=== PATIENT | female | born 1960 | race Two or more races ===

== ENCOUNTER 2018-01-27 16:35 | Emergency (ER) | payer SELFPAY ==
[2018-01-27] MEDS ORDERED: Sodium Chloride 0.9% 1,000 ML IV ONE (16:55)
[2018-01-27] MEDS ORDERED: Ketorolac 30 MG/ML SDV IVPUSH ONE (16:56)
[2018-01-27] MEDS ORDERED: Sodium Chloride 0.9% 10 ML Syringe FLUSH PRN (16:56)
[2018-01-27] MEDS ORDERED: Ondansetron 4 MG/2 ML SDV IVPUSH ONE (16:56)
[2018-01-27] MEDS ORDERED: Sodium Chloride 0.9% 2.5 ML Syringe FLUSH PRN (16:56)
[2018-01-27] MEDS ORDERED: Proparacaine 0.5% Ophth Soln 15 ML Bottle EYELF ONE (17:01)
--- NOTE | 2018-01-27 17:06 | EDM.PDOC ---
ED HPI GENERAL MEDICAL PROBLEM - General Chief Complaint: Headache Stated Complaint: HEAD HURTS AND WENT TO HER EYE Time Seen by Provider: 01/27/18 17:05 Source of Information: Reports: Patient History Limitations: Reports: No Limitations - History of Present Illness INITIAL COMMENTS - FREE TEXT/NARRATIVE: HISTORY AND PHYSICAL: History of present illness: Patient is a 57-year-old female here with complaint of left-sided headache and eye pain that started at 1pm today. Patient states left eye is blurry and light bothers it. She reports the pain is constant. She is feeling nauseas but denies any fevers, chills, abdominal pain, vomiting, diarrhea. Patient has history of glaucoma, hypertension, and type 2 diabetes. She is using topical drops for her glaucoma, last ophthalmology visit was about 2 months ago. Patient rates pain 10 /10. Review of systems: As per history of present illness and below otherwise all systems reviewed and negative. Past medical history: As per history of present illness and as reviewed below otherwise noncontributory. Surgical history: As per history of present illness and as reviewed below otherwise noncontributory. Social history: No reported history of drug or alcohol abuse. Family history: As per history of present illness and as reviewed below otherwise noncontributory. Physical exam: General: Patient sitting comfortably in no acute distress and nontoxic appearing HEENT: Left eye is injected with tearing. Atraumatic, normocephalic, pupils reactive, negative for conjunctival pallor or scleral icterus, mucous membranes moist, throat clear, neck supple, nontender, trachea midline. No meningeal signs. Wood's lamp exam unremarkable. Lungs: Clear to auscultation, breath sounds equal bilaterally, chest nontender. Heart: S1S2, regular, negative for clicks, rubs, or overt murmur. Abdomen: Soft, nondistended, nontender. Negative for masses or hepatosplenomegaly. Negative for costovertebral tenderness. Pelvis: Stable nontender. Genitourinary: Deferred. Rectal: Deferred. Extremities: Atraumatic, negative for cords or calf pain. Neurovascular unremarkable. Neuro: Awake, alert, oriented. Cranial nerves II through XII unremarkable. Cerebellum unremarkable. Motor and sensory unremarkable throughout. Exam nonfocal. Notes: 1745 - patient rates pain 8/10. 1800 - patient rates pain 5/[address] Davis ophthalmology, he advised ointment/artificial tears and follow up at [place] tomorrow. Diagnostics: CBC, CMP Head CT IOP 31mmHg Therapeutics: 1L normal saline IV 30mg Toradol IV 4mg Zofran IV 1mg Ativan IV 25mg Benadryl IV Prescriptions: Artificial tears Impression: Left eye pain vs migraine Plan: 1. Use drops and take toradol as instructed 2. Follow up with supply chain technician tomorrow, please call clinic to schedule appointment. 3. Return to ED as needed as discussed Definitive disposition and diagnosis as appropriate pending reevaluation and review of above. left eye Pain Score (Numeric/FACES): 10 - Related Data Allergies Allergy/AdvReac Type Severity Reaction Status Date / Time No Known Allergies Allergy Verified 01/27/18 16:55 Home Meds: Home Meds Dextran 70/Hypromellose [Artificial Tears Eye Drops] 15 ml OP Q4HR #1 drops [Rx] Ketorolac [Toradol] 10 mg PO Q6H PRN #8 tab 01/27/18 [Rx] Lisinopril/Hydrochlorothiazide [Lisinopril-Hctz 20-12.5 mg Tab] 1 each PO DAILY 01/27/18 [History] Simvastatin 20 mg PO BEDTIME 01/27/18 [History] metFORMIN [Glucophage XR] 500 mg PO WITHDINNER 01/27/18 [History] Past Medical History HEENT History: Reports: Glaucoma Cardiovascular History: Reports: Hypertension Endocrine/Metabolic History: Reports: Diabetes, Type II - Infectious Disease History Infectious Disease History: Reports: None Social & Family History - Family History Family Medical History: Noncontributory - Tobacco Use Smoking Status *Q: Never Smoker - Recreational Drug Use Recreational Drug Use: No ED ROS GENERAL - Review of Systems Review Of Systems: ROS reveals no pertinent complaints other than HPI. - Physical Exam Exam: See Below (See dictation) Course - Vital Signs Last Recorded V/S: Last Vital Signs Temp 35.9 C 01/27/18 16:53 Pulse 92 01/27/18 16:53 Resp 18 01/27/18 16:53 BP 162/81 H 01/27/18 16:53 Pulse Ox 95 01/27/18 16:53 - Orders/Labs/Meds Orders: Active Orders 24 hr Category Date Time Status Head wo Cont [CT] Stat Exams 01/27/18 17:14 Taken Sodium Chloride 0.9% [Saline Flush] Med 01/27/18 16:56 Active 10 ml FLUSH ASDIRECTED PRN Sodium Chloride 0.9% [Saline Flush] Med 01/27/18 16:56 Active 2.5 ml FLUSH ASDIRECTED PRN Saline Lock Insert [OM.PC] Stat Oth 01/27/18 16:55 Ordered Medication Orders Sodium Chloride (Saline Flush) 10 ml FLUSH ASDIRECTED PRN PRN Reason: Keep Vein Open Last Admin: 01/27/18 17:01 Dose: 10 ml Sodium Chloride (Saline Flush) 2.5 ml FLUSH ASDIRECTED PRN PRN Reason: Keep Vein Open Last Admin: 01/27/18 17:02 Dose: 2.5 ml Labs: Laboratory Tests 01/27/18 01/27/18 01/27/18 Range/Units 16:57 16:57 16:57 WBC 9.67 (4.0-11.0) K/uL RBC 4.58 (4.30-5.90) M/uL Hgb 13.7 (12.0-16.0) g/dL Hct 40.3 (36.0-46.0) % MCV 88.0 (80.0-98.0) fL MCH 29.9 (27.0-32.0) pg MCHC 34.0 (31.0-37.0) g/dL RDW Std Deviation 40.6 (28.0-62.0) fl RDW Coeff of Delia 13 (11.0-15.0) % Plt Count 237 (150-400) K/uL MPV 11.90 (7.40-12.00) fL Neut % (Auto) 73.2 (48.0-80.0) % Lymph % (Auto) 22.5 (16.0-40.0) % [place] % (Auto) 3.5 (0.0-15.0) % Eos % (Auto) 0.5 (0.0-7.0) % Baso % (Auto) 0.3 (0.0-1.5) % Neut # (Auto) 7.1 H (1.4-5.7) K/uL Lymph # (Auto) 2.2 (0.6-2.4) K/uL [place] # (Auto) 0.3 (0.0-0.8) K/uL Eos # (Auto) 0.1 (0.0-0.7) K/uL Baso # (Auto) 0.0 (0.0-0.1) K/uL Nucleated RBC % 0.0 /100WBC Nucleated RBCs # 0 K/uL ESR 12 (0-29) mm/hr Sodium 133 L (136-145) mmol/L Potassium 4.3 (3.5-5.1) mmol/L Chloride 97 L (98-107) mmol/L Carbon Dioxide 23.6 (21.0-32.0) mmol/L BUN 18 (7.0-18.0) mg/dL Creatinine 1.1 H (0.6-1.0) mg/dL Est Cr Clr Drug Dosing TNP Estimated GFR (MDRD) 51.6 ml/min Glucose 139 H (74-106) mg/dL Calcium 9.6 (8.5-10.1) mg/dL Total Bilirubin 0.4 (0.2-1.0) mg/dL AST 30 (15-37) IU/L ALT 42 (14-63) IU/L Alkaline Phosphatase 102 (46-116) U/L Total Protein 8.0 (6.4-8.2) g/dL Albumin 4.4 (3.4-5.0) g/dL Globulin 3.6 H (2.0-3.5) g/dL Albumin/Globulin Ratio 1.2 L (1.3-2.8) Meds: Medications Generic Name Dose Route Start Last Admin Trade Name Freq PRN Reason Stop Dose Admin Sodium Chloride 10 ml 01/27/18 16:56 01/27/18 17:01 Saline Flush FLUSH 10 ml ASDIRECTED PRN Administration Keep Vein Open Sodium Chloride 2.5 ml 01/27/18 16:56 01/27/18 17:02 Saline Flush FLUSH 2.5 ml ASDIRECTED PRN Administration Keep Vein Open Discontinued Medications Generic Name Dose Route Start Last Admin Trade Name Freq PRN Reason Stop Dose Admin Diphenhydramine HCl 25 mg 01/27/18 17:46 01/27/18 17:56 Benadryl IVPUSH 01/27/18 17:47 25 mg ONETIME ONE Administration Sodium Chloride 1,000 mls @ 999 mls/hr 01/27/18 16:55 01/27/18 17:01 Normal Saline IV 01/27/18 17:55 999 mls/hr STAT ONE Administration Ketorolac Tromethamine 30 mg 01/27/18 16:56 01/27/18 17:02 Toradol IVPUSH 01/27/18 16:57 30 mg ONETIME ONE Administration Lorazepam 1 mg 01/27/18 17:45 01/27/18 17:56 Ativan IVPUSH 01/27/18 17:46 1 mg ONETIME ONE Administration Ondansetron HCl 4 mg 01/27/18 16:56 01/27/18 17:02 Zofran IVPUSH 01/27/18 16:57 4 mg ONETIME ONE Administration Proparacaine HCl 1 ml 01/27/18 17:01 01/27/18 17:04 Proparacaine 0.5% Ophth Soln EYELF 01/27/18 17:02 2 drop ONETIME ONE Administration Departure - Departure Time of Disposition: 18:37 Disposition: Home, Self-Care 01 Condition: Good Clinical Impression: Headache, Acute left eye pain - Discharge Information Referrals: PCP,None [Primary Care Provider] - Forms: ED Department Discharge Additional Instructions: The following information is given to patients seen in the emergency department who are being discharged to home. This information is to outline your options for follow-up care. We provide all patients seen in our emergency department with a follow-up referral. The need for follow-up, as well as the timing and circumstances, are variable depending upon the specifics of your emergency department visit. If you don't have a primary care physician on staff, we will provide you with a referral. We always advise you to contact your personal physician following an emergency department visit to inform them of the circumstance of the visit and for follow-up with them and/or the need for any referrals to a consulting specialist. The emergency department will also refer you to a specialist when appropriate. This referral assures that you have the opportunity for follow-up care with a specialist. All of these measure are taken in an effort to provide you with optimal care, which includes your follow-up. Under all circumstances we always encourage you to contact your private physician who remains a resource for coordinating your care. When calling for follow-up care, please make the office aware that this follow-up is from your recent emergency room visit. If for any reason you are refused follow-up, please contact the [facility] Emergency Department at and asked to speak to the emergency department charge nurse. [address] [address] 1. Use drops and take toradol as instructed 2. Follow up with supply chain technician tomorrow, please call clinic to schedule appointment. 3. Return to ED as needed as discussed - My Orders Last 24 Hours: My Active Orders 01/27/18 16:55 Saline Lock Insert [OM.PC] Stat 01/27/18 16:56 Sodium Chloride 0.9% [Saline Flush] 10 ml FLUSH ASDIRECTED PRN Sodium Chloride 0.9% [Saline Flush] 2.5 ml FLUSH ASDIRECTED PRN 01/27/18 17:14 Head wo Cont [CT] Stat - Assessment/Plan Last 24 Hours: My Active Orders 01/27/18 16:55 Saline Lock Insert [OM.PC] Stat 01/27/18 16:56 Sodium Chloride 0.9% [Saline Flush] 10 ml FLUSH ASDIRECTED PRN Sodium Chloride 0.9% [Saline Flush] 2.5 ml FLUSH ASDIRECTED PRN 01/27/18 17:14 Head wo Cont [CT] Stat
[2018-01-27 17:30] LABS: CHLORIDE,CL 97 mmol/L (98-107); SODIUM,NA 133 mmol/L (136-145)
[2018-01-27] MEDS ORDERED: LORazepam 2 MG/ML SDV IVPUSH ONE (17:45)
[2018-01-27] MEDS ORDERED: diphenhydrAMINE 50 MG/ML SDV IVPUSH ONE (17:46)
--- NOTE | 2018-01-28 09:16 | CT ---
EXAM DATE: 01/27/18 PATIENT'S AGE: 57 Patient: ИВАН DEJESUS Facility: [place], [place] Site . Site : [id number] Study: CT Head [id number] 5:39:57 PM Ordering Physician: Doctor Ochoa Final Report: Indication: Headaches. Technique: Multiaxial CT images of the head were obtained without contrast. Coronal and sagittal reformats were submitted. Comparison: No prior studies are available for comparison at this institution. Findings: The ventricles, sulci and gyri are of normal size, shape and contour. Midline structures are centrally located. No convincing evidence of intra- or extra- axial fluid collections. The calvarium and skull base are unremarkable, with normal aeration of the visualized petrous temporal bones and paranasal sinuses on both sides. Impression: No radiographic evidence of acute intracranial abnormality. Please note that all CT scans at this facility use dose modulation, iterative reconstruction, and/or weight-based dosing when appropriate to reduce radiation dose to as low as reasonably achievable. Dictated by Hamilton De Souza MD @ Jan 27 2018 5:46PM (Electronic Signature) Report Signed by Proxy. [facility]
== END 2018-01-27 18:48 | disposition home or self-care (01) ==
LOC: MW.ED 16:35
DX: H57.12 Ocular pain, left eye (principal); R51 Headache; E11.9 Type 2 diabetes mellitus without complications
CPT/HCPCS: 36415; 70450; 80053; 85025; 85652; 96361; 96374; 96375; 99284; J1200; J1885; J2060; J2405; J7040